=== PATIENT | female | born 1990 | race African-American/Black ===

== ENCOUNTER 2016-09-02 18:10 | Emergency (ER) | payer OTHER ==
[~2016-09-02] VITALS: Ht 170.2 cm; Wt 63.5 kg
--- NOTE | 2016-09-02 19:08 | NUR ---
Harsh Larose at bedside for eval.
--- NOTE | 2016-09-02 19:15 | NUR ---
TO BED 8 A 26 YO FEMALE BIBSELF WITH C/O HEADACHE X 1 WEEK, SHE'S CONCERNED BECAUSE SHE'S SAYING THAT IT'S THE WORST HEADACHE OF HER LIFE. WITH NAUSEA, NO VOMITING. VSS. AFEBRILE. BREATHING EVEN AND UNLABORED. NO SOB. DENIES DIZINESS. GOWNED. INITIATED COMFORT MEASURES. AWAITING FOR ER MD HICKMAN.
[2016-09-02] MEDS ORDERED: ACETAMINOPHEN ES 500 MG TABLET ONE (19:28)
[2016-09-02] MEDS ORDERED: METOCLOPRAMIDE HCL 10 MG TABLET ONE (19:28)
[2016-09-02] MEDS ORDERED: METOCLOPRAMIDE HCL 10 MG TABLET PO ONE (19:30)
[2016-09-02] MEDS ORDERED: ACETAMINOPHEN 325 MG TABLET PO ONE (19:30)
--- NOTE | 2016-09-02 20:18 | NUR ---
Dr Mora at bedside.
--- NOTE | 2016-09-02 20:48 | NUR ---
Patient discharged to home in stable condition. Written and verbal after care instructions given. Patient verbalizes understanding of instruction. Patient is ambulatory with steady gait, no further complaints.
[2016-09-02 20:51] VITALS: BP 130/79
== END 2016-09-02 20:51 | disposition home or self-care (01) ==
LOC: ER 18:12
DX: R51 Headache (principal); K42.9 Umbilical hernia without obstruction or gangrene; N88.8 Other specified noninflammatory disorders of cervix uteri
CPT/HCPCS: A4217; A4606; J8597; Z7610